=== PATIENT | male | born 1985 | race Caucasian/White ===

== ENCOUNTER 2016-09-27 23:10 | Emergency (ER) | payer OTHER ==
[2016-09-28 00:04] LABS: CREATININE 1.1 mg/dL (0.7-1.2)
[2016-09-28 00:05] LABS: ALBUMIN 4.5 g/dL (3.5-5.0); BILIRUBIN - TOTAL 0.2 mg/dL (0.1-1.0); GLOBULIN (CALCULATION) 2.2 g/dL (2.2-4.2); POTASSIUM 4.1 mmol/L (3.5-5.1); TOTAL PROTEIN 6.7 g/dL (6.4-8.3)
[2016-09-28 00:18] LABS: BASOPHIL 0.3 % (0-2); EOSINOPHIL 2.6 % (0-5); HCT 41.8 % (42.0-52.0); HGB 14.4 g/dl (13.2-18.0); LYMPHOCYTE 26.6 % (15-48); MCH 31.7 pg (25.0-31.0); MCHC 34.4 g/dL (32.0-36.0); MCV 92.1 fL (78.0-100.0); MONOCYTE 8.6 % (0-12); MPV 10.6 fL (6.0-9.5); NEUTROPHIL 61.9 % (41-80); PLT 242 K/uL (150-400); RBC 4.54 M/uL (4.70-6.00); WBC 10.4 K/uL (4.0-10.5)
[2016-09-28 00:21] LABS: INR 0.96 (0.9-1.2); PROTHROMBIN TIME 12.4 SECONDS (11.7-14.0)
[2016-09-28 00:22] LABS: PTT 27.7 SECONDS (23.2-31.4)
== END 2016-09-28 01:53 | disposition home or self-care (01) ==
LOC: FER 23:10
PROVIDERS: Emergency Medicine Emergency Medical Services
DX: R51 Headache (principal); K03.81 Cracked tooth; K02.9 Dental caries, unspecified; R11.2 Nausea with vomiting, unspecified; M54.2 Cervicalgia; E86.9 Volume depletion, unspecified; Z88.0 Allergy status to penicillin; Z88.1 Allergy status to other antibiotic agents; Z88.6 Allergy status to analgesic agent
CPT/HCPCS: 36415; 70450; 80053; 85025; 85610; 85730; J1100; J1170; J2765